=== PATIENT | female | born 1970 | race Caucasian/White ===

== ENCOUNTER 2023-11-23 16:54 | Emergency (ER) | payer OTHER, SELFPAY ==
[2023-11-23] VITALS (7 sets, daily range): BP systolic 127–188; BP diastolic 81–106
[2023-11-23 17:33] LABS: % Basophils 0.6 % (0-2); % Eosinophils 2.3 % (0-6); % Immature Granulocytes 0.2 % (0-0.5); % Lymphocytes 34.4 % (20.5-51.1); % Monocytes 6.9 % (1.7-9.3); % Neutrophils 55.6 % (42.2-75.2); Absolute Basophils 0.1 10^3/uL (0-0.2); Absolute Eosinophils 0.2 10^3/uL (0-0.7); Absolute Lymphocytes 2.8 10^3/uL (1.2-3.4); Absolute Monocytes 0.6 10^3/uL (0.1-0.6); Absolute Neutrophils 4.5 10^3/uL (1.4-6.5); Hematocrit 38.6 % (37.0-47.0); Hemoglobin 14.2 g/dL (12.0-16.0); Mean Corp Hgb Conc. 36.8 g/dL (33.0-37.0); Mean Corpuscular Hgb 34.8 pg (27.0-31.0); Mean Corpuscular Volume 94.6 fL (81.0-99.0); Mean Platelet Volume 8.9 fL (7.4-10.4); Nucleated Red Blood Cells % 0 %; Platelet Count 294 10^3/uL (130-400); Red Blood Cell Count 4.08 10^6/uL (4.20-5.40); White Blood Cell Count 8.1 10^3/uL (4.8-10.8)
[2023-11-23 17:54] LABS: ALT (SGPT) 29 U/L (0-35); AST (SGOT) 38 U/L (14-36); Albumin 4.1 g/dl (3.5-5.0); Alkaline Phosphatase 96 U/L (38-126); Blood Urea Nitrogen 7 mg/dl (7-17); Carbon Dioxide 24 mmol/L (22-30); Chloride 99 mmol/L (98-107); Glucose 86 mg/dl (70-99); Potassium 3.5 mmol/L (3.5-5.1); Sodium 134 mmol/L (135-145); Total Bilirubin 1.3 mg/dl (0.2-1.3); Total Protein 6.3 g/dl (6.3-8.2); eGFR > 60.00
[2023-11-23] MEDS: LOW STRENGTH ASPIRIN 324 MG PO (17:54)
[2023-11-23 17:58] LABS: Troponin I < 0.012 ng/ml
[2023-11-23] MEDS: NITROSTAT (SUBLINGUAL) 0.400000000000000022 MG SL (17:58)
--- NOTE | 2023-11-23 18:28 | ED.GENMED ---
History of Present Illness
<Marty Carvalho PA-C - Last Filed: 11/23/23 21:16>
General
Chief Complaint: Blood Pressure Problem
Time Seen by Provider: 11/23/23 17:12
Travel History
Have you had any contact with someone who has COVID-19?: No
Do you have any symptoms of coronavirus? Fever > 100 degrees, chills, cough, shortness of breath, sore throat, loss of taste or smell, muscle aches, or headache?: No
History of Present Illness
History of Present Illness:
53-year-old female with history of untreated hypertension presents to the emergency department for evaluation of central chest discomfort as well as bilateral arm tingling. She has had intermittent chest discomfort over the past 3 to 4 days however
pain became more severe yesterday and persisted into this morning. She notes radiation to the jaw as well as tingling of the arms that developed this morning as well. Denies any pleuritic pain, shortness of breath, or exertional symptoms. Denies
any weakness of the arms of the legs. She is a current smoker, does not take her blood pressure medication routinely, denies any history of hyperlipidemia or diabetes. No known family history of coronary artery disease
Past History
<Marty Carvalho PA-C - Last Filed: 11/23/23 21:16>
Past History
ED Past Medical History: None
Social History
Tobacco: Non-smoker
Review of Systems
<Marty Carvalho PA-C - Last Filed: 11/23/23 21:16>
Review of Systems
Allergies reviewed?: Yes
All Other Systems: ROS reviewed and negative except as documented in HPI and ROS
Phy Exam
<Marty Carvalho PA-C - Last Filed: 11/23/23 21:16>
Physical Exam
Physical Exam:
GEN: Well appearing, NAD, WDWN
Eyes: PERRLA, EOMs intact
HENT: NCAT, oral mucosa moist, no JVD
Lungs: CTAB, no wheezes, rales, rhonchi, normal chest wall excursion
Cardiac: RRR, no M/R/G, no peripheral edema. Radial pulses 2+ bilat
Abdomen: S, NT, ND, NABS, no masses or hepatosplenomegaly
Neuro: AO x 3
MSK: No gross deformity or ecchymosis.
Skin: No rashes, petechiae. Normal color, no pallor or jaundice.
Psych: Calm, cooperative, proper hygiene
Scores
<Marty Carvalho PA-C - Last Filed: 11/23/23 21:16>
Heart Score for Chest Pain Patients
STEMI patient?: No
History: Moderately Suspicious
ECG: Nonspecific Repolarization
Age: >45 - <65 years
Risk Factors: 1 or 2 Risk Factors
Troponin: </= Normal Limit
Heart Score for Chest Pain Patients: 4
Heart Score Risk: 20.3% MACE over next 6 weeks
<Derick Rizo MD - Last Filed: 11/23/23 22:16>
Heart Score for Chest Pain Patients
Heart Score for Chest Pain Patients: 4
Heart Score Risk: 20.3% MACE over next 6 weeks
Course
<Marty Carvalho PA-C - Last Filed: 11/23/23 21:16>
Orders/Labs/Results
Orders:
Orders
11/23/23 16:55
ECG [Electrocardiogram (*1)] Urgent
Reason for Study: Chest Pain
EKG- Treatment ONCE
11/23/23 17:08
Electrocardiogram (*1) Urgent
Reason for Study: Other
Other Reason for Exam: repeat ecg
CR Chest - 2 Views Urgent
Comment:
Reason For Exam: chest pain
11/23/23 17:09
EKG- Treatment ONCE
11/23/23 17:17
Complete Blood Count/With Diff Urgent
Comprehensive Metabolic Panel Urgent
PTT Urgent
Troponin I Urgent
11/23/23 17:20
Aspirin Chewable [Low Strength Aspirin] 324 mg PO NOW STA
Nitroglycerin Sublingual [Nitrostat (Sublingual)] 0.4 mg SL NOW STA
11/23/23 18:36
Mag Hydrox/Al Hydrox/Simeth [Maalox] 30 ml Phenobarb/Hyoscy/Atropine/Scop [] 10 ml Viscous Lidocaine 2% [Xylocaine Viscous Cup] 10 ml PO NOW
11/23/23 18:37
EKG- Treatment ONCE
11/23/23 19:20
Mag Hydrox/Al Hydrox/Simeth [Maalox] 30 ml .ROUTE .STK-MED ONE
Phenobarb/Hyoscy/Atropine/Scop [] 10 ml .ROUTE .STK-MED ONE
11/23/23 19:21
Viscous Lidocaine 2% [Xylocaine Viscous Cup] 15 ml .ROUTE .STK-MED ONE
11/23/23 20:08
Troponin I Routine
11/23/23 20:15
EKG [Electrocardiogram (*1)] Routine
Reason for Study: Chest Pain
Abnormal Lab Results
11/23/23
17:17
RBC 4.08 L 10^6/uL
(4.20-5.40)
MCH 34.8 H pg
(27.0-31.0)
Sodium 134 L mmol/L
(135-145)
Creatinine 0.5 L mg/dL
(0.6-1.0)
AST 38 H U/L
(14-36)
11/23/23 17:17
11/23/23 17:17
Vital Signs
Initial and Last Documented VS:
Initial Vital Signs
Temp Pulse Resp BP Pulse Ox
98.3 F 89 18 188/106 98
11/23/23 17:04 11/23/23 17:04 11/23/23 17:04 11/23/23 17:04 11/23/23 17:04
Last Documented Vital Signs
Temp Pulse Resp BP Pulse Ox
98.3 F 61 15 127/81 95
11/23/23 17:04 11/23/23 21:00 11/23/23 21:00 11/23/23 21:00 11/23/23 20:45
<Derick Rizo MD - Last Filed: 11/23/23 22:16>
Orders/Labs/Results
Orders:
Orders
11/23/23 16:55
ECG [Electrocardiogram (*1)] Urgent
Reason for Study: Chest Pain
EKG- Treatment ONCE
11/23/23 17:08
Electrocardiogram (*1) Urgent
Reason for Study: Other
Other Reason for Exam: repeat ecg
CR Chest - 2 Views Urgent
Comment:
Reason For Exam: chest pain
11/23/23 17:09
EKG- Treatment ONCE
11/23/23 17:17
Complete Blood Count/With Diff Urgent
Comprehensive Metabolic Panel Urgent
PTT Urgent
Troponin I Urgent
11/23/23 17:20
Aspirin Chewable [Low Strength Aspirin] 324 mg PO NOW STA
Nitroglycerin Sublingual [Nitrostat (Sublingual)] 0.4 mg SL NOW STA
11/23/23 18:36
Mag Hydrox/Al Hydrox/Simeth [Maalox] 30 ml Phenobarb/Hyoscy/Atropine/Scop [] 10 ml Viscous Lidocaine 2% [Xylocaine Viscous Cup] 10 ml PO NOW
11/23/23 18:37
EKG- Treatment ONCE
11/23/23 19:20
Mag Hydrox/Al Hydrox/Simeth [Maalox] 30 ml .ROUTE .STK-MED ONE
Phenobarb/Hyoscy/Atropine/Scop [] 10 ml .ROUTE .STK-MED ONE
11/23/23 19:21
Viscous Lidocaine 2% [Xylocaine Viscous Cup] 15 ml .ROUTE .STK-MED ONE
11/23/23 20:08
Troponin I Routine
11/23/23 20:15
EKG [Electrocardiogram (*1)] Routine
Reason for Study: Chest Pain
Abnormal Lab Results
11/23/23
17:17
RBC 4.08 L 10^6/uL
(4.20-5.40)
MCH 34.8 H pg
(27.0-31.0)
Sodium 134 L mmol/L
(135-145)
Creatinine 0.5 L mg/dL
(0.6-1.0)
AST 38 H U/L
(14-36)
11/23/23 17:17
11/23/23 17:17
Vital Signs
Initial and Last Documented VS:
Initial Vital Signs
Temp Pulse Resp BP Pulse Ox
98.3 F 89 18 188/106 98
11/23/23 17:04 11/23/23 17:04 11/23/23 17:04 11/23/23 17:04 11/23/23 17:04
Last Documented Vital Signs
Temp Pulse Resp BP Pulse Ox
98.3 F 61 15 127/81 95
11/23/23 17:04 11/23/23 21:00 11/23/23 21:00 11/23/23 21:00 11/23/23 20:45
Jonahlt;Marty Carvalho PA-C - Last Filed: 11/23/23 21:16>
MDM/Problems Addressed
MDM/Problems Addressed:
53-year-old female presenting with vague chest tightness. Initial EKG is nonischemic and initial troponin is negative. Given that she is having acute symptoms that developed worsening this morning a repeat EKG and troponin were obtained which were
again negative. Patient has a heart score of 3, in the setting of known risk factors. Her pain did resolve in the emergency department after being given a GI cocktail and her blood pressure improved without medication. While there is likely some
degree of developing coronary artery disease in this patient I do not get the feeling that her symptoms are billing representative of acute coronary syndrome. Nevertheless we will put her in for close outpatient cardiology follow-up. Will start the
patient on her lisinopril that she was previously prescribed, given that her symptoms did resolve after GI cocktail we will place her on a PPI as well. ED return parameters discussed
<Marty Carvalho PA-C - Last Filed: 11/23/23 21:16>
Comment
Comment:
Initial EKG independently interpreted by me shows normal sinus rhythm at a rate of [address] changes concerning for ischemia, some degree of hyperacute appearance to the T waves laterally however this is in the setting of high voltage in the QRS
complex
*Critical Care Note
Total Time (30-74mins, 75-104mins- exclusive of procedures): Not Applicable
ED Attending Note
<Marty Carvalho PA-C - Last Filed: 11/23/23 21:16>
-
Portions of this chart may have been created with voice recognition software.� Occasional wrong word or��sound alike� substitutions may have occurred due to the inherent limitations of voice recognition software.
<Derick Rizo MD - Last Filed: 11/23/23 22:16>
ED Attending Note
Patient seen and examined by attending physician: Yes
ED Attending Note:
Patient with history of hypertension who smokes daily, along with intermittent chest pain over the past 2 years requiring cardiology evaluation, presents to ED secondary to recurrent left-sided chest pain with radiation to up to her jaw, which was
more severe than years in the past. Denies associated shortness of breath. Denies nausea or diaphoresis. Denies recent travel or surgery. Denies back pain. Denies leg pain or swelling.
Physical Exam
General: no apparent distress, not acutely ill. afebrile
Head: nc/at. eomi
Neck: supple. no meningeal signs.
Heart: s1/s2 regular rate and rhythm, no murmur. equal radial pulses.
Lungs: no acute respiratory distress. clear bilaterally. chest wall nontender to palpation.
Abdomen: normal bowel sounds. not tender.
Neuro: alert and oriented. no focal neurological deficits
Skin: no rash
Psychiatric: well kept. interactive and cooperative
Extremities: no edema. no calf tenderness.
EKG with nonspecific narrow T waves. Blood work, including repeat troponin within normal limits. Pt will be discharged home at this time with referral to cardiology for close f/u as outpatient. Pt advised to return to ED with worsening symptoms. Pt
is otherwise hemodynamically stable without any acute distress, at time of discharge.
Discharge Plan
Departure
Patient Disposition: Home (Routine Discharge)
Date of Disposition: 11/23/23
Time of Disposition: 20:59
Patient with high blood pressure during this ER visit?: Yes
Discharge Problem:
Chest pain
Instructions: Chest Pain DCA Follow Up
Prescriptions:
New
lisinopril 10 mg tablet
10 mg PO DAILY Qty: 30 0RF
pantoprazole [Protonix] 40 mg tablet,delayed release (DR/EC)
40 mg PO DAILY Qty: 30 0RF
No Action
clindamycin HCl 150 MG capsule
450 mg PO TID Qty: 63 0RF
Rx Instructions:
7 days
sulfamethoxazole-trimethoprim 1 TABLET tablet
1 tab PO BID Qty: 14 0RF
tramadol 50 MG tablet
50 mg PO Q6HPRN PRN (Reason: Pain) Qty: 15 0RF
Referrals:
NONE,* [Active] -
Interventions
Interventions:
*Risk Screen - Suicide Last Done: 11/23/23 17:04
*General Assessment Last Done: 11/23/23 17:04
*Neglect/Abuse Screening Last Done: 11/23/23 17:04
ED- Fall Risk Assessment Last Done: 11/23/23 17:27
*ED COVID-19 Vaccine History Last Done: 11/23/23 17:27
ED- Cardiac Assessment Last Done: 11/23/23 18:00
ED- Neurological Assessment Last Done: 11/23/23 18:00
ED- Pulmonary Assessment Last Done: 11/23/23 18:00
[2023-11-23] MEDS: MAALOX 50 PO (19:23)
--- NOTE | 2023-11-23 19:50 | EDRN ---
Report received, patient resting comfortably at this time, call ingram in reach.
[2023-11-23 20:46] LABS: Troponin I < 0.012 ng/ml
== END 2023-11-23 21:00 | disposition home or self-care (01) ==
LOC: EMR 16:54
PROVIDERS: Physician Assistant; EMERGENCY PHYSICIAN Emergency Medicine; FAMILY PHYSICIAN Family Medicine
DX: R07.89 Other chest pain (principal); I11.9 Hypertensive heart disease without heart failure; I25.10 Atherosclerotic heart disease of native coronary artery without angina pectoris
CPT/HCPCS: 99283; 71046; 80053; 84484; 85025; 85730; 93005

== ENCOUNTER → 2023-12-14 07:26 | Outpatient (REF) | payer OTHER, SELFPAY | LOC: RCS 07:26 | PROVIDERS: ATTENDING PHYSICIAN Nuclear Medicine Nuclear Cardiology; FAMILY PHYSICIAN Family Medicine | DX: R07.9 Chest pain, unspecified (principal); R00.2 Palpitations; R94.31 Abnormal electrocardiogram [ECG] [EKG] | CPT/HCPCS: 93306 ==

== ENCOUNTER → 2023-12-25 13:23 | Outpatient (REF) | payer OTHER, SELFPAY | LOC: RCS 13:23 | PROVIDERS: ATTENDING PHYSICIAN Nuclear Medicine Nuclear Cardiology; FAMILY PHYSICIAN Family Medicine | DX: R07.9 Chest pain, unspecified (principal); R00.2 Palpitations; R94.31 Abnormal electrocardiogram [ECG] [EKG] | CPT/HCPCS: 93017; 93350 ==

== ENCOUNTER → 2024-08-19 09:19 | Outpatient (REF) | payer OTHER, SELFPAY | LOC: WDC 09:19 | PROVIDERS: ATTENDING PHYSICIAN Advanced Practice Midwife; FAMILY PHYSICIAN Family Medicine | DX: N63.10 Unspecified lump in the right breast, unspecified quadrant (principal); N63.12 Unspecified lump in the right breast, upper inner quadrant | CPT/HCPCS: 76642; 77062; 77066 ==